=== PATIENT | female | born 2000 | race Caucasian/White ===

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

== ENCOUNTER 2018-01-26 20:38 | Inpatient (IN) | payer OTHER ==
[2018-01-26 21:23] VITALS: BMI 27.3
[2018-01-26] MEDS: Lactated Ringer's 1,000 ML IV PRN (21:37)
[2018-01-26] MEDS ORDERED: Lidocaine 1% (PF) 30 ML VIAL SC PRN (21:38)
[2018-01-26] MEDS ORDERED: HYDROcodone/Acetaminophen 5/325 mg Tablet PO PRN ×2 (21:38)
[2018-01-26] MEDS ORDERED: Promethazine HCl 25 MG/ML VIAL IM PRN (21:38)
[2018-01-26] MEDS ORDERED: Ibuprofen 800 MG TAB PO PRN (21:38)
[2018-01-26] MEDS ORDERED: Ondansetron HCl/PF 4 MG/2 ML Vial IVP PRN (21:38)
[2018-01-26] MEDS ORDERED: Methylergonovine 0.2 MG/ML VIAL IM PRN (21:38)
[2018-01-26] MEDS ORDERED: Carboprost 250 MCG/ML AMP IM PRN (21:38)
[2018-01-26] MEDS ORDERED: LR / Pitocin 40 units/1000 ml 1,000 ML IV PRN (21:38)
[2018-01-26] MEDS ORDERED: Penicillin G Potassium 5 MILL.UNITS VIAL ONE (21:40)
[2018-01-26] MEDS ORDERED: Penicillin G Potassium 5 MILL.UNITS in Sodium Chloride 0.9% 100 ML IVPB SCH (21:45)
--- NOTE | 2018-01-26 21:54 | PDOC.LDHP ---
Labor and Delivery H&P Chief complaint: contractions HPI: Patient had started lesly every 5 mins for greater than two hours Current gestational age (weeks): 38 Grav: 1 Para: 0 Current complications: none Abnormal US findings: No (NML echo at 22 weeks gestation) Past Medical History: pulmonary stenosis - corrected age 3 NML echo 1st trimester Current medications: pre-marlyn vitamins Previous surgical history: other (balloon cath age 3 y.o) Allergies/Adverse Reactions: Allergies Allergy/AdvReac Type Severity Reaction Status Date / Time shellfish derived Allergy Intermediate Anaphylaxis Verified 01/26/18 21:14 No Known Drug Allergies Allergy Verified 01/26/18 21:12 Social history: none - Physical Exam Vital signs reviewed and normal: yes Abnormal vital signs: Occ. systolic elevations 140s/70 General: breathing through contractions Heart: RRR Lungs: nonlabored breathing Abdomen: gravid Extremeties: pitting edema (+1) FHT: category 1 [place] contractions every: 5 mins - Vaginal Exam cm dilated: 4 Effacement: 100% Station: -1 - OB Labs Blood type: AB RH: positive Antibody Screen: negative HIV: negative RPR: negative HEPSAg: negative 1 hour GCT: negative GBS: positive Urine drug screen: not done Rubella: immune Additional Labs: Sequential screen negative - Assessment L&D Assessment: term patient in labor - Plan Plan: admit to L&D, GBS antibiotic prophylaxis (Deisres low intervetnion protocol)
[2018-01-26 22:23] LABS: Hemoglobin 11.8 g/dL (12.0-16.0); Mean Corpuscular Hemoglobin 24.8 pg (25.0-35.0); Mean Platelet Volume 11.5 fL (7.4-10.4); Platelet Count 177 thou/uL (130-400); Red Blood Cell (RBC) Count 4.75 mill/uL (4.00-5.20); White Blood Cell (WBC) Count 18.6 thou/uL (4.8-10.8)
[2018-01-26 23:03] LABS: Syphilis Antibody Nonreactive (Nonreactive); Syphilis Antibody Index 0.13 S/CO (<1.00 Non-Reactive)
[2018-01-26 23:46] LABS: HBSAg Index 0.25 S/CO (0-0.99); Hep B Surf Ag Non-Reactive S/CO (NonReactive)
[2018-01-27] MEDS: Penicillin G 2.5 MILL.units 2.5 MILL.UNITS in Premix Bag 1 BAG IVPB SCH ×4 (01:44→13:34)
[2018-01-27] MEDS: Bupivacaine 0.5% 20 ML, fentaNYL Citrate/PF 400 MCG in Sodium Chloride 0.9% 72 ML EPIDURAL SCH ×3 (02:05→16:52)
[2018-01-27] MEDS ORDERED: Promethazine HCl 25 MG/ML VIAL IM PRN (02:12)
[2018-01-27] MEDS ORDERED: Lactated Ringer's 500 ML IV PRN (02:12)
[2018-01-27] MEDS ORDERED: Naloxone HCl 0.4 mg/ml Vial IVP PRN ×2 (02:12)
[2018-01-27] MEDS ORDERED: Ondansetron HCl/PF 4 MG/2 ML Vial IVP PRN ×2 (02:12→20:49)
[2018-01-27] MEDS ORDERED: Acetaminophen 325 MG TAB PO PRN ×2 (02:12→20:49)
[2018-01-27] MEDS ORDERED: ePHEDrine/0.9% NaCl/PF SYRINGE 50 mg/10 ml SLOW IVP PRN (02:12)
[2018-01-27] MEDS ORDERED: Eucerin (Mineral Oil/Petrolatum,White) 30 gm Jar TOP PRN (02:12)
[2018-01-27] MEDS ORDERED: diphenhydrAMINE 50 MG/ML VIAL IVP PRN (02:12)
[2018-01-27] MEDS ORDERED: Communication Order-Pharmacy FS SCH (02:15)
[2018-01-27] MEDS ORDERED: Fentanyl 4mcg/Marcaine 0.1% Cassette 100 ML EPIDURAL SCH (02:15)
--- NOTE | 2018-01-27 02:51 | PDOC.LDPN ---
Labor & Delivery Progress Note - Subjective Subjective: comfortable (after epidural placement) - Objective Abnormal vital signs: mild sytolic elevations 144/80s General: resting Uterine fundus: non tender Dilation: 6 Effacement: 100% Station: -1 FHT: category 1 AROM: clear fluid - Assessment (1) 38 weeks gestation of Code(s): Z3A.38 - 38 WEEKS GESTATION OF Current Visit: Yes Status : Acute (2) Intrauterine in teenager Code(s): Z34.80 - ENCOUNTER FOR SUPRVSN OF NORMAL , UNSP TRIMESTER Current Visit: Yes Status: Acute (3) Primigravida 16 to 19 years of age Code(s): [id number] - Current Visit: Yes Status: Acute (4) Personal history of pulmonary artery stenosis Code(s): Z86.79 - PERSONAL HISTORY OF OTHER DISEASES OF THE CIRCULATORY SYSTEM Current Visit: Yes Status: Acute
[2018-01-27] MEDS ORDERED: LR 500 ML/Oxytocin 10 units 500 ML IV PRN (02:55)
[2018-01-27] MEDS: Lactated Ringer's 1,000 ML IV PRN ×2 (06:12→18:44)
[2018-01-27] MEDS ORDERED: NS / Oxytocin 40 units/1000ml 1,000 ML IV PRN (10:47)
[2018-01-27] MEDS ORDERED: Dexamethasone 20 MG/5 ML VIAL ONE (13:58)
[2018-01-27] MEDS ORDERED: Ketorolac Tromethamine 30 MG/ML VIAL ONE (13:58)
[2018-01-27] MEDS ORDERED: Gentamicin 80 MG/2 ML VIAL IVPB SCH (16:15)
[2018-01-27] MEDS ORDERED: Ampicillin 2 GM in Sodium Chloride 0.9% 100 ML IVPB SCH (16:30)
[2018-01-27] MEDS ORDERED: Gentamicin Sulfate 260 MG in Sodium Chloride 0.9% 100 ML IVPB SCH (17:00)
--- NOTE | 2018-01-27 18:11 | PDOC.LDPN ---
Labor & Delivery Progress Note - Subjective Subjective: comfortable (epidural) - Objective Vital signs reviewed and normal: yes General: breathing through contractions Uterine fundus: non tender Dilation: 10 Effacement: 100% Station: 1+ FHT: category 2 Other exam findings: chorioamnionitis Procedures: consultation with [facility] Dr. Saucedo Resuscitative measures: maternal oxygen - Assessment (1) 38 weeks gestation of Code(s): Z3A.38 - 38 WEEKS GESTATION OF Current Visit: Yes Status : Acute (2) Intrauterine in teenager Code(s): Z34.80 - ENCOUNTER FOR SUPRVSN OF NORMAL , UNSP TRIMESTER Current Visit: Yes Status: Acute (3) Primigravida 16 to 19 years of age Code(s): [id number] - Current Visit: Yes Status: Acute (4) Personal history of pulmonary artery stenosis Code(s): Z86.79 - PERSONAL HISTORY OF OTHER DISEASES OF THE CIRCULATORY SYSTEM Current Visit: Yes Status: Acute (5) Chorioamnionitis Code(s): O41.1290 - CHORIOAMNIONITIS, UNSP TRIMESTER, NOT APPLICABLE OR UNSP Current Visit: Yes Status: Acute (6) Failure of descent in labor, delivered, current hospitalization Code(s): O62.2 - OTHER UTERINE INERTIA Current Visit: Yes Status: Acute Plan: other (proceed with primary section.) -: Consultation with Dr. Saucedo at 1645 regarding heart rate strip and to evaluate for vavd. After consultation with Dr. Saucedo the decision was made to continue with maternal pushing efforts. After another hour of pushing, no addition decent was made in the pelvis. Discussed options of primary c - section vs. continued pushing efforts with patient including risks and benefits of each. Due to the tachycardia, worsening heart rate tracing with minimal variability and late deceleration, the decision to proceed with delivery at this time. Dr. saucedo the primary surgeon was notified.
[2018-01-27] MEDS ORDERED: Clindamycin/D5W 900 MG in Premix Bag 1 BAG IVPB SCH (18:15)
[2018-01-27] MEDS ORDERED: Bicitra 30 ML UDCUP PO SCH (18:15)
[2018-01-27] MEDS ORDERED: Fentanyl 100 MCG/2 ML VIAL ONE ×3 (18:48→19:26)
[2018-01-27] MEDS ORDERED: Oxytocin 10 UNITS/ML VIAL ONE (18:58)
[2018-01-27] MEDS ORDERED: Morphine PF 1 MG/ML SYR ONE (18:58)
[2018-01-27] MEDS ORDERED: ePHEDrine/0.9% NaCl/PF SYRINGE 50 mg/10 ml ONE (19:28)
[2018-01-27] MEDS ORDERED: Dexamethasone 4 mg/ml Vial ONE (19:30)
[2018-01-27 19:31] LABS: Actual Bicarbonate (HCO3a) 19.4 mEq/L (22-26); Base Excess (BEa) -4.1 mEq/L (0 (+/-) 2.5)
--- NOTE | 2018-01-27 19:50 | PDOC.OPDEL ---
OB Operative/Delivery Note Delivery Dr/Surgeon: Sheryl Assist: Light, CNM Pre-Delivery Diagnosis: non-reassuring tracing ( arrest of descent, CPD) Procedure/Post Delivery Dx: primary low transverse CS Weeks gestation: 38 Anesthesia: epidural - Findings A Sex: male Weight: 6 lb 11 oz - 1 min: 7 - 5 min: 9 - Additional Findings/Plan Placenta delivered: spontaneous findings: low transverse hysterotomy without extension, normal uterus, normal tubes, normal ovaries Estimated blood loss: 700 Compilations/Other Findings: Deep transverse arrest Post delivery plan: routine recovery
[2018-01-27] MEDS ORDERED: Bisacodyl 10 MG SUPP PR PRN (20:49)
[2018-01-27] MEDS ORDERED: Measles/Mumps/Rubella 10 MCG/0.5 ML VIAL SC ONE (20:49)
[2018-01-27] MEDS ORDERED: Methylergonovine 0.2 MG/ML VIAL IM PRN (20:49)
[2018-01-27] MEDS ORDERED: Misoprostol 200 MCG TAB PR SCH (20:49)
[2018-01-27] MEDS ORDERED: Adacel (T-DAP) 0.5 ML VIAL IM ONE (20:49)
[2018-01-27] MEDS ORDERED: HYDROcodone/Acetaminophen 5/325 mg Tablet PO PRN (20:49)
[2018-01-27] MEDS ORDERED: Lactated Ringer's 1,000 ML IV SCH (20:49)
[2018-01-27] MEDS ORDERED: NS / Oxytocin 40 units/1000ml 1,000 ML IV SCH (20:49)
[2018-01-27] MEDS ORDERED: Ibuprofen 800 MG TAB PO SCH (22:00)
--- NOTE | 2018-01-27 23:10 | OP ---
DATE OF OPERATION: 01/27/2018 PREOPERATIVE DIAGNOSES: 1. Intrauterine at 38 weeks and 3 days. 2. Nonreassuring heart tones. 3. Arrest of descent. 4. Chorioamnionitis. 5. Cephalopelvic disproportion. POSTOPERATIVE DIAGNOSES: 1. Intrauterine at 38 weeks and 3 days. 2. Nonreassuring heart tones. 3. Arrest of descent. 4. Chorioamnionitis. 5. Cephalopelvic disproportion. 6. Deep transverse arrest. ATTENDING SURGEON: Jenny Saucedo M.D. [facility] [employer] PATROL SURGEON: CHAO Smith ANESTHESIA: Epidural. COMPLICATIONS: None. PATHOLOGY: Placenta. DRAINS: [place] catheter. FINDINGS: Male infant, cephalic presentation, deep transverse arrest with significant caput and moul ding, Apgars of 7 and 9, weighing 6 pounds 11 ounces, hysterotomy without extension, normal uterus, o varies, and tubes bilaterally. ESTIMATED BLOOD LOSS: 700 mL. INTRAVENOUS FLUIDS: One liter crystalloid. URINE OUTPUT: 100 mL of bloody urine that was present from prior to surgery. OPERATIVE TECHNIQUE: The patient was taken to the operating room where epidural anesthesia was found to be adequate. The patient was prepped and draped in a sterile fashion in the dorsal supine positi on with a leftward tilt. After ensuring adequacy of anesthesia, a Pfannenstiel skin incision was mad e and carried down to the underlying subcutaneous tissue with a knife. The fascia was nicked in the midline with a knife and carried laterally with the Quinonez scissors. The superior aspect of the fascia was tented with 2 Kochers and dissected off the rectus bluntly and sharply with the Mayos. The infe rior aspect of the fascia was tented with 2 Kochers and dissected off the rectus down to the pubic sy mphysis. The peritoneum was bluntly entered into and manually retracted. The Marcos O retractor was placed. The vesicouterine peritoneum was incised with the Metzenbaums to create a bladder flap. Th e lower uterine segment was incised in a transverse fashion and extended with a Torres maneuver. The i nfant's head was brought to the hysterotomy and delivered with fundal pressure. The rest of the body delivered without difficulty. Delayed cord clamping was performed. [facility] Cord segment and cord blood were obtained. The placenta was allowed to spontaneously d eliver. The uterus was exteriorized and cleared of all clots and debris and then placed back into th e abdomen and hysterotomy was repaired with #1 Monocryl in a running locking fashion. There was some bleeding from the right apex brisk bleeding and this was hemostatic with an imbricating layer of #1 Monocryl in a horizontal fashion. All across the low transverse incision and additional [id number] ght was placed on the right apex for hemostasis near the uterine vessels with 2-0 Vicryl. Irrigation of the pelvis and pericolic gutters was performed and hemostasis was noted to be excellent. The Sheri xis O retractor was removed out of the abdomen. The rectus muscles were examined and noted to be hem ostatic. The peritoneum was then closed with 2-0 plain gut in a running fashion. The fascia was aarti pproximated with an 0 PDS x1 suture with excellent reapproximation. The subcutaneous tissue was irri gated and cauterized of any bleeders and reapproximated with a 2-0 plain gut in a running fashion. S kin was closed with 4-0 Monocryl in a subcuticular fashion. Dermabond was applied as well as a press ure dressing. The patient tolerated procedure well. Sponge and needle counts were correct x2. The patient was taken to recovery room in stable condition. The patient received amp gentamicin and clin damycin as a preop antibiotic secondary to chorioamnionitis and was taken to recovery room in stable condition.
[2018-01-27] MEDS ORDERED: Ampicillin 1 GM in Sodium Chloride 0.9% 100 ML IVPB SCH (23:59)
[2018-01-28] MEDS ORDERED: Ketorolac Tromethamine 30 MG/ML VIAL IVP PRN (00:08)
[2018-01-28] MEDS: Docusate Calcium (SURFAK) 240 MG CAP PO SCH ×3 (00:47→21:41)
[2018-01-28] MEDS: Ferrous Sulfate 325 MG TAB PO SCH ×3 (00:48→21:41)
[2018-01-28 06:10] LABS: Hemoglobin 8.3 g/dL (12.0-16.0); Mean Corpuscular Volume 74.8 fl (77.0-87.0); Mean Platelet Volume 11.9 fL (7.4-10.4); Platelet Count 155 thou/uL (130-400); RBC Distribution Width 14.3 % (11.5-14.5); Red Blood Cell (RBC) Count 3.45 mill/uL (4.00-5.20); White Blood Cell (WBC) Count 32.4 thou/uL (4.8-10.8)
[2018-01-28] MEDS: Simethicone Chewable 80 MG TAB PO PRN (09:35)
[2018-01-28] MEDS: Prenatal Vitamin 1 TAB PO SCH (09:35)
[2018-01-28] MEDS: HYDROcodone/Acetaminophen 5/325 mg Tablet PO PRN ×3 (09:35→21:45)
[2018-01-28] MEDS: Ibuprofen 800 MG TAB PO SCH (19:19)
[2018-01-29] MEDS: HYDROcodone/Acetaminophen 5/325 mg Tablet PO PRN ×3 (01:50→18:21)
[2018-01-29] MEDS: Ibuprofen 800 MG TAB PO SCH ×3 (05:40→21:39)
[2018-01-29] MEDS ORDERED: Ibuprofen 800 MG TAB PO SCH (06:00)
[2018-01-29] MEDS: Docusate Calcium (SURFAK) 240 MG CAP PO SCH ×2 (09:30→21:39)
[2018-01-29] MEDS: Prenatal Vitamin 1 TAB PO SCH (09:30)
[2018-01-29] MEDS: Ferrous Sulfate 325 MG TAB PO SCH ×2 (09:30→21:39)
--- NOTE | 2018-01-29 11:55 | PDOC.PP ---
Post Progress Note Post Day #: 1 PO intake tolerated: yes Flatus: yes Ambulation: yes Vital Signs (12 hours) Temp Pulse Resp BP 01/29/18 08:52 97.9 F 76 18 121/76 01/29/18 08:00 97.9 F 76 18 01/29/18 04:35 98.2 F 70 18 105/67 01/29/18 00:16 97.9 F 99 18 113/57 L Weight Weight 140 lb - Physical Examination General: NAD Cardiovascular: no m/r/g Respiratory: clear to auscultation bilaterally Abdominal: + bowel sounds, lochia (minimal) Fundus firm & at: u Extremities: negative homans (B) Skin: CS incision dry & intact Perineum: edematous Psychiatric: A&Ox3 Result Diagrams: 01/28/18 05:11 Additional Labs: Post Labs Blood Type AB POSITIVE 01/26/18 22:09 Hep Bs Antigen Non-Reactive S/CO (NonReactive) 01/26/18 22:09 (1) 38 weeks gestation of Code(s): Z3A.38 - 38 WEEKS GESTATION OF Status: Acute (2) Intrauterine in teenager Code(s): Z34.80 - ENCOUNTER FOR SUPRVSN OF NORMAL , UNSP TRIMESTER Status: Acute (3) Primigravida 16 to 19 years of age Code(s): [id number] - Status: Acute (4) Personal history of pulmonary artery stenosis Code(s): Z86.79 - PERSONAL HISTORY OF OTHER DISEASES OF THE CIRCULATORY SYSTEM Status: Acute (5) Chorioamnionitis Code(s): O41.1290 - CHORIOAMNIONITIS, UNSP TRIMESTER, NOT APPLICABLE OR UNSP Status: Acute (6) Failure of descent in labor, delivered, current hospitalization Code(s): O62.2 - OTHER UTERINE INERTIA Status: Acute - Assessment/Plan A; G1 now P1 s/o LTCS for failure to decend and non reassuring heart tones withe NML PPD #1 exam P: plan for discharge on Friday. Routine care
--- NOTE | 2018-01-29 13:49 | PRG ---
DATE OF SERVICE: 01/29/2018 SUBJECTIVE: The patient is doing well after her , passing gas, up to the bathroom, urinatin g okay. is going well. OBJECTIVE: VITAL SIGNS: Within normal limits. Blood pressure 121/76, respirations 18, pulse 76, temp 97.9. He moglobin 8.3 and hematocrit 25.8. comfortably. PSYCHIATRIC: Normal affect. LUNGS: Clear bilaterally. CARDIOVASCULAR: Heart sounds are normal S1, S2. No gallop. Systolic murmur present. ABDOMEN: Bowel sounds present x4 quadrants. . EXTREMITIES: No claudication. No pain in the back of the calf. Minimal edema in lower extremities. ASSESSMENT: 1, no para 1, status post primary low transverse section for failure to descend and nonreassuring heart sounds with normal . PLAN: tomorrow mornning.
[2018-01-29] MEDS: Simethicone Chewable 80 MG TAB PO PRN (21:38)
[2018-01-30] MEDS: Simethicone Chewable 80 MG TAB PO PRN (04:05)
[2018-01-30] MEDS: HYDROcodone/Acetaminophen 5/325 mg Tablet PO PRN ×2 (04:05→10:48)
[2018-01-30] MEDS: Ibuprofen 800 MG TAB PO SCH (05:49)
[2018-01-30] MEDS: Ferrous Sulfate 325 MG TAB PO SCH (09:18)
[2018-01-30] MEDS: Prenatal Vitamin 1 TAB PO SCH (09:18)
[2018-01-30] MEDS: Docusate Calcium (SURFAK) 240 MG CAP PO SCH (09:18)
[2018-01-30 11:01] VITALS: BP 125/87; TEMP 98.1
== END 2018-01-30 12:20 | disposition home or self-care (01) | DRG 765 ==
LOC: L&D/OP 20:38 → L&D 22:20 → 3SW 01-27 22:15
PROVIDERS: ADMIT Obstetrics & Gynecology; ATTEND Obstetrics & Gynecology
PROC: 10D00Z1 Extraction of Products of Conception, Low, Open Approach (ICD-10-PCS; principal; 2018-01-27)
DX: O33.9 Maternal care for disproportion, unspecified (principal); O41.1230 Chorioamnionitis, third trimester, not applicable or unspecified; O75.2 Pyrexia during labor, not elsewhere classified; Z37.0 Single live birth; O76 Abnormality in fetal heart rate and rhythm complicating labor and delivery; Z3A.38 38 weeks gestation of pregnancy; O62.2 Other uterine inertia
CPT/HCPCS: 36415; 51702; 82805; 85027; 86780; 86850; 86900; 86901; 87340; 88307; 99285; J0290; J1100; J1200; J1580; J1885; J2001; J2274; J2540; J2590; J3010; J3490; J7050; J7120